=== PATIENT | male | born 1995 | race Caucasian/White ===

== ENCOUNTER 2017-05-04 12:25 | Emergency (ER) | payer SELFPAY | END 2017-05-04 12:53 | disposition left against medical advice (07) | LOC: ER 12:25 | DX: Z53.9 Procedure and treatment not carried out, unspecified reason (principal); R05 Cough; J02.9 Acute pharyngitis, unspecified ==

== ENCOUNTER 2018-03-05 13:15 | Emergency (ER) | payer MEDICAID ==
--- NOTE | 2018-03-05 14:18 | ER Document Report ---
ED Medical Screen (RME) - General Chief Complaint: Chest Pain Stated Complaint: CHEST PAIN Time Seen by Provider: 03/05/18 14:13 Notes: 22-year-old male patient complaining of chest pain, pain in both upper arms, pain to right calf and swelling. States this started about 2-3 days ago and has been getting worse. States he does not work out. I have greeted and performed a rapid initial assessment of this patient. A comprehensive ED assessment and evaluation of the patient, analysis of test results and completion of the medical decision making process will be conducted by additional ED providers. TRAVEL OUTSIDE OF THE [place] IN LAST 30 DAYS: No - Related Data Allergies/Adverse Reactions: No Known Allergies Allergy (Verified 05/04/17 13:13) Physical Exam - Vital signs Vitals: Temp Pulse Resp BP Pulse Ox 98.4 F 69 14 149/88 H 97 03/05/18 13:25 03/05/18 13:25 03/05/18 13:25 03/05/18 13:25 03/05/18 13:25 Course - Vital Signs Vital signs: Temp Pulse Resp BP Pulse Ox 98.4 F 69 14 149/88 H 97 03/05/18 13:25 03/05/18 13:25 03/05/18 13:25 03/05/18 13:25 03/05/18 13:25
[2018-03-05 14:40] LABS: ABSOLUTE EOSINOPHILS # (AUTO) 0.2 10^3/uL (0.0-0.6); ABSOLUTE LYMPHOCYTES (AUTO) 1.9 10^3/uL (0.5-4.7); ABSOLUTE MONOCYTES (AUTO) 0.6 10^3/uL (0.1-1.4); ABSOLUTE NEUT (AUTO) 3.5 10^3/uL (1.7-8.2); BASOPHILS % (AUTO) 0.7 % (0-2); EOSINOPHILS % (AUTO) 2.6 % (0-6); HEMATOCRIT 48.6 % (37.9-51.0); HEMOGLOBIN 16.7 g/dL (13.5-17.0); LYMPHOCYTES % (AUTO) 30.2 % (13-45); MEAN CORPUSCULAR HEMOGLOBIN 26.9 pg (27.0-33.4); MEAN CORPUSCULAR HGB CONC 34.2 g/dL (32.0-36.0); MEAN CORPUSCULAR VOLUME 78 fl (80-97); MONOCYTES % (AUTO) 9.5 % (3-13); PLATELET COUNT 174 10^3/uL (150-450); RED CELL DISTRIBUTION WIDTH 13.7 % (11.5-14.0); TOTAL CELLS COUNTED % (AUTO) 100 %; WHITE BLOOD COUNT 6.2 10^3/uL (4.0-10.5)
[2018-03-05 14:55] LABS: ALANINE AMINOTRANSFERASE 141 U/L (21-72); ALBUMIN 4.6 g/dL (3.5-5.0); ALKALINE PHOSPHATASE 75 U/L (38-126); ANION GAP 12 (5-19); ASPARTATE AMINO TRANSFERASE 58 U/L (17-59); BILIRUBIN,DIRECT 0.2 mg/dL (0.0-0.4); BILIRUBIN,TOTAL 0.4 mg/dL (0.2-1.3); BLOOD UREA NITROGEN 11 mg/dL (7-20); CALCIUM 9.7 mg/dL (8.4-10.2); CARBON DIOXIDE 30 mmol/L (22-30); CHLORIDE 103 mmol/L (98-107); CREATINE KINASE 123 U/L (55-170); GLUCOSE 101 mg/dL (75-110); POTASSIUM 3.9 mmol/L (3.6-5.0); SODIUM 144.8 mmol/L (137-145); TOTAL PROTEIN 7.6 g/dL (6.3-8.2)
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
[2018-03-05 15:19] LABS: ERYTHROCYTE SEDIMENTATION RATE 2 mm/hr (0-15)
[2018-03-05] MEDS ORDERED: NORMAL SALINE 1000 ML 1,000 ML IV ONE (15:35)
--- NOTE | 2018-03-05 15:42 | ER Document Report ---
ED General - General Chief Complaint: Chest Pain Stated Complaint: CHEST PAIN Time Seen by Provider: 03/05/18 14:13 Mode of Arrival: Ambulatory Information source: Patient TRAVEL OUTSIDE OF THE [place] IN LAST 30 DAYS: No - HPI Patient complains to provider of: Chest pain, leg pain and swelling, arm pain Onset: Other - 2-3 days Onset/Duration: Gradual Quality of pain: Achy, Fullness, Pressure, Throbbing Associated symptoms: Chest pain Exacerbated by: Movement Similar symptoms previously: No Recently seen / treated by doctor: No Notes: Patient is a 22-year-old male presenting to the emergency room today complaining of multiple areas of pain, including his left chest, bilateral arms , right leg, he reports his right leg and left arm are swollen and feel full, he has been having intermittent stabbing chest pain for the past month or so, worsening over the past few days and more consistent, he denies any shortness of breath, pain started yesterday evening after having intercourse with his , he denies any cough, cold or congestion, no nausea or vomiting, no history of similar symptoms, no stimulants or energy drink usage in excess, he is a smoker but drinks occasionally, no heavy drinking recently, denies drug use - Related Data Allergies/Adverse Reactions: codeine Allergy (Verified 03/05/18 14:19) Past Medical History - General Information source: Patient - Social History Smoking Status: Current Every Day Smoker Chew tobacco use (# tins/day): No Frequency of alcohol use: Rare Drug Abuse: None Family History: Reviewed & Not Pertinent Patient has suicidal ideation: No Patient has homicidal ideation: No - Past Medical History Cardiac Medical History: Reports: Hx Hypertension Renal/ Medical History: Denies: Hx Peritoneal Dialysis Psychiatric Medical History: Reports: Hx Depression Past Surgical History: Reports: Hx Orthopedic Surgery - right hand Review of Systems - Review of Systems Constitutional: No symptoms reported EENT: No symptoms reported Cardiovascular: Chest pain Respiratory: No symptoms reported Gastrointestinal: No symptoms reported Genitourinary: No symptoms reported Male Genitourinary: No symptoms reported Musculoskeletal: See HPI Skin: No symptoms reported Hematologic/Lymphatic: No symptoms reported Neurological/Psychological: No symptoms reported -: Yes All other systems reviewed and negative Physical Exam - Vital signs Vitals: Temp Pulse Resp BP Pulse Ox 98.4 F 69 14 149/88 H 97 03/05/18 13:25 03/05/18 13:25 03/05/18 13:25 03/05/18 13:25 03/05/18 13:25 Interpretation: Normal - General General appearance: Appears well, Alert - HEENT Head: Normocephalic, Atraumatic Eyes: Normal Pupils: PERRL - Respiratory Respiratory status: No respiratory distress Chest status: Nontender Breath sounds: Normal Chest palpation: Normal - Cardiovascular Rhythm: Regular Heart sounds: Normal auscultation Murmur: No - Abdominal Inspection: Normal Distension: No distension Bowel sounds: Normal Tenderness: Nontender Organomegaly: No organomegaly - Back Back: Normal, Nontender - Extremities General upper extremity: Normal inspection, Nontender, Normal color, Normal ROM , Normal temperature General lower extremity: Normal inspection, Nontender, Normal color, Normal ROM , Normal temperature, Normal weight bearing. No: Heladio's sign - Neurological Neuro grossly intact: Yes Cognition: Normal Orientation: AAOx4 [place] Coma Scale Eye Opening: Spontaneous Dolores Coma Scale Verbal: Oriented Dolores Coma Scale Motor: Obeys Commands Dolores Coma Scale Total: 15 Speech: Normal Motor strength normal: LUE, RUE, LLE, RLE Sensory: Normal - Psychological Associated symptoms: Normal affect, Normal mood - Skin Skin Temperature: Warm Skin Moisture: Dry Skin Color: Normal Course - Re-evaluation Re-evalutation: 03/05/18 16:46 Lab and imaging findings unremarkable and discussed with patient at bedside, patient was advised to consider dietary changes as he reported some increased weight gain and a poor diet recently, as well as follow-up with primary care for further evaluation and treatment, patient acknowledges understanding and agreement with this plan - Vital Signs Vital signs: Temp Pulse Resp BP Pulse Ox 98.4 F 69 14 149/88 H 97 03/05/18 13:25 03/05/18 13:25 03/05/18 13:25 03/05/18 13:25 03/05/18 13:25 - Laboratory Result Diagrams: 03/05/18 14:25 03/05/18 14:25 Laboratory results interpreted by me: 03/05/18 03/05/18 03/05/18 14:25 14:25 14:25 RBC 6.20 H MCV 78 L MCH 26.9 L ALT 141 H C-Reactive Protein 10.6 H - Diagnostic Test Radiology reviewed: Image reviewed, Reports reviewed - EKG Interpretation by Me EKG shows normal: Sinus rhythm Rate: Normal Rhythm: NSR, PVC's Discharge - Discharge Clinical Impression: Myalgia Chest pain Qualifiers: Chest pain type: unspecified Qualified Code(s): R07.9 - Chest pain, unspecified Condition: Stable Disposition: HOME, SELF-CARE Instructions: Chest Pain of Unclear Cause ([facility]), Myalagia (Muscle Pain) ([facility]) Additional Instructions: Follow up with your primary care provider in one to 2 days. Return to the emergency room immediately if symptoms worsen or any additional concerns. Forms: Smoking Cessation Education
[2018-03-05 15:54] LABS: C-REACTIVE PROTEIN 10.6 mg/L (<10.0)
--- NOTE | 2018-03-05 15:56 | EKG REPORT ---
SEVERITY:- ABNORMAL ECG - SINUS RHYTHM MULTIPLE VENTRICULAR PREMATURE COMPLEXES : Confirmed by: See Moulton MD 05-Mar-2018 15:55:51
[2018-03-05 16:03] LABS: CREATINE KINASE MB 0.5 ng/mL (<4.55)
[2018-03-05 17:07] VITALS: BP 146/78
== END 2018-03-05 17:07 | disposition home or self-care (01) ==
LOC: EDBD → ER 13:15
DX: R07.9 Chest pain, unspecified (principal); M79.1 Myalgia; M79.601 Pain in right arm; M79.602 Pain in left arm; M79.604 Pain in right leg; M79.89 Other specified soft tissue disorders; F17.200 Nicotine dependence, unspecified, uncomplicated; I10 Essential (primary) hypertension
CPT/HCPCS: 93005; 99285; 96360; 36415; 82553; 82550; 83735; 85025; 85652; 86140; 80053; 84484; 85379; 83880; 71046; 93010; J7030